=== PATIENT | female | born 1985 | race Two or more races ===

== ENCOUNTER 2020-02-25 13:51 | Emergency (ER) | payer MEDICAID ==
[~2020-02-25] VITALS: Ht 154.9 cm; Wt 91.0 kg
[2020-02-25 13:58] VITALS: BP 146/83
[2020-02-25] MEDS ORDERED: IBUPROFEN 600MG TABLET PO ONE (14:30)
== END 2020-02-25 16:03 | disposition home or self-care (01) ==
LOC: ER 13:51
DX: M25.572 Pain in left ankle and joints of left foot (principal); M25.571 Pain in right ankle and joints of right foot; M25.551 Pain in right hip
CPT/HCPCS: 73502; 73610; 99284